=== PATIENT | female | born 1945 | race Caucasian/White ===

== ENCOUNTER 2023-09-04 11:15 | Inpatient (IN) | payer OTHER ==
[~2023-09-04] VITALS: Ht 172.7 cm; Wt 54.5 kg
[2023-09-04 11:29] VITALS: PULSE 107; RESP 21; O2SAT 94
[2023-09-04 11:50] LABS: Basophils # (auto) 0.1 10 ^3/uL (0-0.2); Basophils % (auto) 0.6 % (0.0-2.0); Eosinophils # (auto) 0 10 ^3/uL (0-0.8); Eosinophils % (auto) 0.2 % (0.0-7.0); Lymphocytes # (auto) 2.3 10 ^3/uL (0.4-5.4); Lymphocytes % (auto) 25.3 % (10.0-50.0); Mean Corpuscular Volume 91.2 fL (80.0-100.0); Monocytes # (auto) 1.5 10 ^3/uL (0-1.3); Monocytes % (auto) 16.5 % (0.0-12.0); Neutrophils # (auto) 5.1 10 ^3/uL (1.6-8.6); Neutrophils % (auto) 57.4 % (37.0-80.0); Nucleated Red Blood Cells % 0.1 %; Red Blood Cells 5.16 10^6/uL (4.0-5.20); Red Cell Distribution Width 14.5 % (11.8-14.3); White Blood Cell 8.9 10^3/uL (4.4-10.8)
[2023-09-04] MEDS: dilTIAZem 25 MG/5 ML VIAL IV ONE (12:05)
[2023-09-04 12:08] LABS: Alanine Aminotransferase 22 U/L (7-40); Albumin 4.2 g/dL (3.2-4.8); Alkaline Phosphatase 108 U/L (46-116); Anion Gap 5 (5-15); Aspartate Aminotransferase 24 U/L (13-40); BUN/Creatinine Ratio 18.2 (10.0-20.0); Blood Urea Nitrogen 12 mg/dL (9-23); Calcium 9.6 mg/dL (8.5-10.1); Carbon Dioxide 29 mmol/L (20-30); Chloride 103 mmol/L (98-107); Glucose 71 mg/dL (74-106); Potassium 4.8 mmol/L (3.5-5.1); Sodium 137 mmol/L (136-145)
[2023-09-04 12:09] LABS: Bilirubin, Total 0.3 mg/dL (0.2-1.0); Total Protein 7.2 g/dL (5.7-8.2)
[2023-09-04] MEDS: SODIUM CHLORIDE 0.9% 1,000 ML IV ONE (12:24)
[2023-09-04 12:30] LABS: Magnesium 2.1 mg/dL (1.6-2.6)
[2023-09-04 14:15] LABS: Urine Bacteria None Seen /hpf (None Seen)
[2023-09-04 14:35] LABS: Urine Blood Negative /uL (Negative); Urine Clarity Clear (Clear); Urine Color Colorless (Yellow); Urine Protein, UAD Negative (Negative); Urine Specific Gravity 1.004 (1.001-1.035); Urine Urobilinogen Normal (Negative); Urine WBC <1 /hpf (0 - 5); Urine pH 6.5 (5.0-9.0)
[2023-09-04 14:40] LABS: Amphetamine Screen, Urine Neg (NEGATIVE); Barbiturate Scree,Urine Neg (NEGATIVE); Benzodiazephine Screen, Urine Neg (NEGATIVE); Cannabinoid Screen, Urine Neg (NEGATIVE); Cocaine Screen, Urine Neg (NEGATIVE); Opiate Scree,Urine Neg (NEGATIVE); Phencyclidine Screen, Urine Neg (NEGATIVE)
[2023-09-04] MEDS ORDERED: ONDANSETRON HCL 4 MG/2 ML VIAL IV PRN (14:45)
[2023-09-04] MEDS ORDERED: MORPHINE SULFATE INJ 2 MG/ml SYRG IV PRN (14:45)
[2023-09-04] MEDS ORDERED: DOCUSATE SOD 100 MG CAP PO PRN (14:45)
[2023-09-04 15:00] VITALS: BP 156/86; RESP 19; O2SAT 93
[2023-09-04 16:00] VITALS: PULSE 86
[2023-09-04 16:12] LABS: Magnesium 2.2 mg/dL (1.6-2.6)
[2023-09-04 16:13] LABS: Phosphorus 2.9 mg/dL (2.4-5.1)
[2023-09-04] MEDS: SODIUM CHLORIDE 0.9% 1,000 ML IV SCH (16:36)
[2023-09-04] MEDS ORDERED: LISINOPRIL 5 MG TAB PO ONE (18:15)
[2023-09-04] MEDS ORDERED: AMIODARONE HCL 200 MG TAB PO ONE (18:15)
[2023-09-04] MEDS ORDERED: ASPirin 81 mg TAB PO ONE (18:15)
[2023-09-04] MEDS ORDERED: hydrALAZINE HCL 20 MG/ML VL IV PRN (18:15)
[2023-09-04] MEDS ORDERED: METOPROLOL TARTRATE 25 MG TAB PO ONE (18:15)
[2023-09-04 19:46] LABS: Triglycerides 76 mg/dL (< 150)
[2023-09-04 19:47] LABS: LDL Cholesterol 101 mg/dL (< 100)
[2023-09-04 19:48] LABS: Cholesterol 153 mg/dL (< 200); HDL Cholesterol 47 mg/dL (40-59)
[2023-09-04] MEDS ORDERED: AMIODARONE HCL 200 MG TAB PO SCH (22:00)
[2023-09-04] MEDS ORDERED: ATORVASTATIN 20 MG TAB PO SCH (22:00)
[2023-09-05] MEDS ORDERED: ENOXAPARIN SOD 40 MG/0.4 ML SYRINGE SC SCH (10:00)
[2023-09-05] MEDS ORDERED: LISINOPRIL 5 MG TAB PO SCH (10:00)
[2023-09-05] MEDS ORDERED: METOPROLOL SUCCINATE XL 50 MG TAB PO SCH (10:00)
[2023-09-05] MEDS ORDERED: ASPirin 81 mg TAB PO SCH (10:00)
== END 2023-09-04 17:57 | disposition left against medical advice (07) | DRG 310 ==
LOC: EDBD 11:15 → ER 11:15 → TELE 16:00
PROVIDERS: ADMIT Nurse Practitioner Family; ATTEND Nurse Practitioner Acute Care
DX: I47.19 Other supraventricular tachycardia (principal); I48.91 Unspecified atrial fibrillation; J44.9 Chronic obstructive pulmonary disease, unspecified; Z96.641 Presence of right artificial hip joint; F17.210 Nicotine dependence, cigarettes, uncomplicated; Z53.29 Procedure and treatment not carried out because of patient's decision for other reasons; G89.4 Chronic pain syndrome; I16.0 Hypertensive urgency; Z87.440 Personal history of urinary (tract) infections
CPT/HCPCS: 36415; 71045; 80053; 80061; 80307; 81001; 83036; 83605; 83735; 83880; 84100; 84443; 84484; 85025; 93005; 93306; G0378

== ENCOUNTER 2024-11-13 08:49 | Inpatient (IN) | payer OTHER ==
[~2024-11-13] VITALS: Ht 175.3 cm; Wt 75.0 kg
[2024-11-13] MEDS: SODIUM CHLORIDE 0.9% 2,000 ML IV ONE (09:15)
--- NOTE | 2024-11-13 09:36 | DVH ---
XY CHEST PORTABLE, HISTORY: FEVER COMPARISON: XY CHEST PORTABLE on DOS: 09/04/23 XY CHEST PORTABLE on DOS: 09/04/23 TECHNICAL DATA: 1 view of the chest was obtained. FINDINGS: Lines and tubes: None Cardiomediastinal silhouette: normal Pulmonary vasculature: prominent Lung expansion: normal Lung airspace: normal Lung interstitium: normal Pleura: normal Pneumothorax: no Bones: Unremarkable Other: no IMPRESSION: No acute intrathoracic abnormality.
--- NOTE | 2024-11-13 09:40 | DVH ---
CT HEAD WITHOUT CONTRAST INDICATION: [facility] EXAM DATE: 11/13/2024 09:04 AM COMPARISON: None RADIATION DOSE: CTDIvol: 52.14 mGy, DLP: 818.91 mGy*cm PROCEDURE: CT scans of the head were obtained from the vertex to the skull base. Sagittal and coronal reconstructions were provided. All CT scans at this medical facility are performed using dose modulation techniques as appropriate t o a performed exam including the following: Automated exposure control was utilized; adjustment of th e MA and/or KV according to patient size; and use of iterative reconstruction technique. FINDINGS: There is sulcal and ventricular prominence. The brainshows normal morphology and enrique-whi te matter differentiation, without intracranial hemorrhage, extra-axial fluid collection, mass effect or acute large vessel infarct. The ventricles are normal in size. The basal cisterns are patent. The skull and visible facial bones are intact. The paranasal sinuses, mastoid air cells and middle ear c avities are well-aerated. The soft tissues of the scalp are unremarkable. IMPRESSION: No acute intracranial abnormality.
[2024-11-13 09:49] LABS: Basophils # (auto) 0 10 ^3/uL (0-0.2); Eosinophils # (auto) 0 10 ^3/uL (0-0.8); Hematocrit 52.3 % (36.0-46.0); Hemoglobin 17.7 g/dL (12.2-16.2); Lymphocytes # (auto) 0.8 10 ^3/uL (0.4-5.4); Lymphocytes % (auto) 6.9 % (10.0-50.0); Mean Corpuscular Hemoglobin 30.4 pg (28.0-32.0); Mean Corpuscular Hgb Conc. 33.9 g/dL (32.0-36.0); Mean Corpuscular Volume 89.7 fL (80.0-100.0); Monocytes # (auto) 1.1 10 ^3/uL (0-1.3); Monocytes % (auto) 9.5 % (0.0-12.0); Neutrophils # (auto) 9.4 10 ^3/uL (1.6-8.6); Neutrophils % (auto) 83.6 % (37.0-80.0); Nucleated Red Blood Cells % 0.1 %; Platelet Count (auto) 192 10^3/uL (140-450); Red Blood Cells 5.84 10^6/uL (4.0-5.20); Red Cell Distribution Width 15.3 % (11.8-14.3); White Blood Cell 11.3 10^3/uL (4.4-10.8)
[2024-11-13] MEDS: VANCOMYCIN 1GM/200ML PM 200 ML IV ONE (10:02)
[2024-11-13 10:09] LABS: Alanine Aminotransferase 38 U/L (7-40); Albumin 4.4 g/dL (3.2-4.8); Alkaline Phosphatase 109 U/L (46-116); Anion Gap 8 (5-15); Aspartate Aminotransferase 77 U/L (<34); BUN/Creatinine Ratio 18.6 (10.0-20.0); Bilirubin, Total 0.8 mg/dL (0.2-1.0); Blood Urea Nitrogen 21 mg/dL (9-23); Calcium 10.1 mg/dL (8.7-10.4); Carbon Dioxide 25 mmol/L (20-31); Chloride 100 mmol/L (98-107); Glucose 160 mg/dL (74-106); Potassium 3.8 mmol/L (3.5-5.1); Sodium 133 mmol/L (136-145); Total Protein 7.4 g/dL (5.7-8.2)
[2024-11-13 10:11] LABS: INR 1.19 (0.9-1.15); Partial Thromboplastin Time 27.3 SEC (24.5-34.5); Prothrombin Time 12.4 sec (9.3-11.8)
[2024-11-13 10:13] VITALS: PULSE 109; RESP 32; O2SAT 95
[2024-11-13 10:18] LABS: Urine Bacteria None Seen /hpf (None Seen)
[2024-11-13 10:23] LABS: Lactic Acid w/Reflex 2.4 mmol/L (0.4-2.0)
[2024-11-13 10:31] LABS: Urine Blood 3+ /uL (Negative); Urine Clarity Clear (Clear); Urine Color Yellow (Yellow); Urine Hyaline Cast FEW /lpf (0 - 2); Urine Mucus FEW (None Seen); Urine Protein, UAD 1+ (Negative); Urine Specific Gravity 1.017 (1.001-1.035); Urine Squamous Epithelial Cell FEW /hpf (<5); Urine Urobilinogen Normal (Negative); Urine WBC 2 /HPF (0-5); Urine pH 5.5 (5.0-9.0)
[2024-11-13] MEDS: ACETAMINOPHEN IV 1000 MG/100ML (10MG/ML) IV STA (10:31)
--- NOTE | 2024-11-13 11:10 | ED.PDOC ---
History of Present Illness HPI Comments 79-year-old female presents via EMS from home after being found down next to her bed by neighbors. Patient's last known well was more than a day ago. Patient denies any memory of what happened. Patient is unable to provide any further history. 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 Family History Family History: Reviewed,noncontributory to illness Social History Smoker: Cigarettes Alcohol: Denies ETOH Use Drugs: Denies Drug Use Lives In: Home All Other Systems: Deferred Physical Exam General Appearance: Mild Distress HEENT: PERRL/EOMI Neck: Normal Inspection Respiratory: No Respiratory Distress Cardiovascular: Tachycardia Breast Exam: Deferred Gastrointestinal: Non Tender Genitalia: Deferred Pelvic: Deferred Rectal: Deferred Extremities: No pedal edema Neurologic: Disoriented Cerebellar Function: NOT DONE Reflexes: NOT DONE Skin: Other (Dry mucous membranes) Lymphatic: NOT DONE Was a procedure done? Was a procedure done?: No Differential Dx Considerations may include: ACS, CVA, viral syndrome, UTI, pneumonia X-Ray, Labs, Meds, VS Vital Signs Date Time Temp Pulse Resp B/P (MAP) Pulse Ox O2 Delivery O2 Flow Rate FiO2 11/13/24 10:13 109 32 95 Nasal Cannula* 6 44 11/13/24 09:56 101.2 112 26 153/81 (105) 87 101.2 11/13/24 08:55 99.2 120 20 124/75 (91) 95 99.2 11/13/24 08:55 111 Lab Test 11/13/24 10:11 11/13/24 09:30 11/13/24 09:00 Range/Units Urine Color Yellow Yellow Urine Clarity Clear Clear Urine pH 5.5 5.0-9.0 Urine Specific [place] 1.017 1.001-1.035 Urine Protein 1+ H Negative Urine Ketones Negative Negative Urine Blood 3+ H Negative /uL Urine Nitrite Negative Negative Urine Bilirubin Negative Negative Urine Urobilinogen Normal Negative mg/dL Urine Leukocyte Esterase Negative Negative /uL Urine RBC 6 0 - 4 /hpf Urine Microscopic WBC 2 0-5 /HPF Urine Squamous Epithelial Cells Few <5 /hpf Urine Bacteria None seen None Seen /hpf Urine Hyaline Casts Few 0 - 2 /lpf Urine Mucus Few None Seen Urine Glucose Trace Normal mg/dL White Blood Count 11.3 H 4.4-10.8 10^3/uL Red Blood Count 5.84 H 4.0-5.20 10^6/uL Hemoglobin 17.7 H 12.2-16.2 g/dL Hematocrit 52.3 H 36.0-46.0 % Mean Corpuscular Volume 89.7 80.0-100.0 fL Mean Corpuscular Hemoglobin 30.4 28.0-32.0 pg Mean Corpuscular Hemoglobin Concent 33.9 32.0-36.0 g/dL Red Cell Distribution Width 15.3 H 11.8-14.3 % Platelet Count 192 140-450 10^3/uL Mean Platelet Volume 7.3 6.9-10.8 fL Neutrophils (%) (Auto) 83.6 H 37.0-80.0 % Lymphocytes (%) (Auto) 6.9 L 10.0-50.0 % Monocytes (%) (Auto) 9.5 0.0-12.0 % Eosinophils (%) (Auto) 0.0 0.0-7.0 % Basophils (%) (Auto) 0.0 0.0-2.0 % Neutrophils # (Auto) 9.4 H 1.6-8.6 10 ^3/uL Lymphocytes # (Auto) 0.8 0.4-5.4 10 ^3/uL Monocytes # (Auto) 1.1 0-1.3 10 ^3/uL Eosinophils # (Auto) 0 0-0.8 10 ^3/uL Basophils # (Auto) 0 0-0.2 10 ^3/uL Nucleated Red Blood Cells 0.1 % Prothrombin Time 12.4 H 9.3-11.8 sec Prothrombin Time INR 1.19 H 0.9-1.15 Activated Partial Thromboplast Time 27.3 24.5-34.5 SEC Sodium Level 133 L 136-145 mmol/L Potassium Level 3.8 3.5-5.1 mmol/L Chloride Level 100 98-107 mmol/L Carbon Dioxide Level 25 20-31 mmol/L Anion Gap 8 5-15 Blood Urea Nitrogen 21 9-23 mg/dL Creatinine 1.13 H 0.550-1.02 mg/dL Glomerular Filtration Rate Calc 49 >90 mL/min BUN/Creatinine Ratio 18.6 10.0-20.0 Serum Glucose 160 H 74-106 mg/dL Lactic Acid Level 2.4 *H 0.4-2.0 mmol/L Calcium Level 10.1 8.7-10.4 mg/dL Total Bilirubin 0.8 0.2-1.0 mg/dL Aspartate Amino Transferase (AST) 77 H <34 U/L Alanine Aminotransferase (ALT) 38 7-40 U/L Alkaline Phosphatase 109 46-116 U/L Total Protein 7.4 5.7-8.2 g/dL Albumin 4.4 3.2-4.8 g/dL POC Glucose 192 H 70-106 mg/dl Current Medications Medications (Trade) Dose Ordered Sig/Lasha Route Start Time Stop Time Status Last Admin Vancomycin HCl 200 ml @ 200 mls/hr ONCE ONCE IV 11/13/24 09:15 11/13/24 10:14 DC 11/13/24 10:02 Sodium Chloride 2,000 ml @ 1,000 mls/hr Q2H ONCE IV 11/13/24 09:15 11/13/24 11:14 11/13/24 09:15 Time of 1ST Reevaluation: 11:09 Reevaluation 1ST: Improved Patient Education/Counseling: Diagnosis, Treatment Family Education/Counseling: No Family Present SEPSIS Sepsis Screen Date sepsis recognized/suspect: Nov 13, 2024 Time Sepsis recognized/suspect: 1039 Recent Procedure: No On Antibiotic Therapy: No Respiratory Rate >20: Yes Heart Rate >90: Yes Temp<36 C (96.8 F) or >38.3 C: Yes SBP <90 or MAP <65 mmHG: No New Acute Mental Status Change: Yes Is the patient on CPAP, BIPAP,: No IV fluid challenge completed?: Yes Physician Orders Electrocardigram (11/13/24 09:03) Chest Portable (11/13/24 09:02) Accucheck (11/13/24 09:02) Blood Culture (11/13/24 09:02) Lactic Acid W/ Reflex Order (11/13/24 12:00) Cefepime 1gm/ 50ml (Maxipime 1gm/50ml) (11/13/24 14:00) Sodium Chloride 0.9% (11/13/24 09:15) Head Without Contrast (11/13/24 09:02) Insert/Manage Urinary Catheter QSHIFT (11/13/24 10:17) Pharmacy Clarification: (11/13/24 10:40) Vital Signs Date Time Temp Pulse Resp B/P (MAP) Pulse Ox O2 Delivery O2 Flow Rate FiO2 11/13/24 10:13 109 32 95 Nasal Cannula* 6 44 11/13/24 09:56 101.2 112 26 153/81 (105) 87 101.2 11/13/24 08:55 99.2 120 20 124/75 (91) 95 99.2 11/13/24 08:55 111 Laboratory Tests Test 11/13/24 09:30 Lactic Acid Level 2.4 mmol/L (0.4-2.0) *H White Blood Count 11.3 10^3/uL (4.4-10.8) H Medications Medications Dose Ordered Sig/Lasha Route Start Time Stop Time Status Last Admin Dose Admin Sodium Chloride 2,000 ml @ 1,000 mls/hr Q2H ONCE IV 11/13/24 09:15 11/13/24 11:14 11/13/24 09:15 Vancomycin HCl 200 ml @ 200 mls/hr ONCE ONCE IV 11/13/24 09:15 11/13/24 10:14 DC 11/13/24 10:02 Departure 1 Departure Time of Disposition: 11:09 (Patient with altered mental status and fever concerning for sepsis. We will empirically cover patient with antibiotics and fluids admit patient for further workup and expert consultation) Impression: Primary Impression: Sepsis Qualified Codes: A41.9 - Sepsis, unspecified organism; R65.20 - Severe sepsis without septic shock; G93.41 - Metabolic encephalopathy Additional Impressions: Metabolic encephalopathy Generalized weakness Disposition: ADMITTED INPATIENT Admit to: Med Surg Condition: Guarded Critical Care Note Critical Care Time?: Yes Critical care comment: Sepsis Authorized and Performed by: Kayode Dodd MD Total critical care time: Approximately 39 minutes Due to a high probability of clinically significant, life threatening deterioration, the patient required my highest level of preparedness to intervene emergently and I personally spent this critical care time directly and personally managing the patient. This critical care time included obtaining a history; examining the patient; pulse oximetry; ordering and review of studies; arranging urgent treatment with development of a management plan; evaluation of patient's response to treatment; frequent reassessment; and, discussions with other providers. This critical care time was performed to assess and manage the high probability of imminent, life-threatening deterioration that could result in multi-organ failure. It was exclusive of separately billable procedures and treating other patients and teaching time. Please see my other sections and the rest of the note for further information on patient assessment and treatment. Stability Stability form required: No Heart Score Heart Score: Heart Score Response (Comments) Value History N/A 0 EKG N/A 0 Age N/A 0 Risk Factors N/A 0 Troponin N/A 0 Total 0 KAYODE DODD MD Nov 13, 2024 11:10
[2024-11-13] MEDS: CEFEPIME 1GM/ 50ML 50 ML IV ONE (11:40)
[2024-11-13] MEDS ORDERED: CEFEPIME 1GM/ 50ML 50 ML IV SCH (14:00)
[2024-11-13] MEDS ORDERED: ACETAMINOPHEN 325 MG TAB PO PRN (14:00)
[2024-11-13] MEDS ORDERED: MORPHINE SULFATE INJ 2 MG/ml SYRG IV PRN (14:00)
[2024-11-13] MEDS ORDERED: ONDANSETRON HCL 4 MG/2 ML VIAL IV PRN (14:00)
[2024-11-13] MEDS ORDERED: NITROGLYCERIN 0.4 MG SL TAB SL PRN (14:00)
[2024-11-13] MEDS ORDERED: VANCOMYCIN PER PHARMACY 0 MG IV SCH (14:00)
[2024-11-13] MEDS ORDERED: DEXTROSE (50%) 50ML SYRG IV PRN (14:00)
[2024-11-13] MEDS ORDERED: LISI10TA34 PO (14:03)
[2024-11-13] MEDS ORDERED: hydrALAZINE HCL 20 MG/ML VL IV PRN (14:15)
--- NOTE | 2024-11-13 14:16 | DVHHP2 ---
History of Present Illness Reason for Visit: ALOC History of Present Illness Joanna Cortez is a 79-year-old female with past medical history of hypertension, COPD, AFib, UTIs, and right hip replacement who presents to the ED with altered level of consciousness. Patient's neighbor/partner and daughter aJneen is at the bedside. They reported that he usually calls her every day and did not answer so he went over to her house next door found her sitting on her buttocks on the floor. Patient reports that she recalls falling down on her buttocks after having generalized body spasms for 2 hours this morning. Patient reports that there were no triggers. Patient also reports that she does not use oxygen at home. Patient currently denies of pain throughout her body, denies chest pain, shortness of breath, fever, chills, lightheadedness, weakness, dizziness, recent ingestion of spoiled food, recent sick contacts, recent travels, urinary symptoms, abdominal pain, nausea, vomiting, or diarrhea. Patient reports that she lives at home alone. She also states that she walks slowly without any DMEs. Patient reports that she smokes half a pack of cigarettes per day, denies illicit drug use, and denies alcohol use. Cardiovascular: AFIB, HTN Pulmonary: COPD Renal/: UTI Past Surgical History: Other (Right hip replacement) Family History: Other (Both parents ) Smoke: <1 pack per day ALCOHOL: none Drugs: None Lives: Alone Domestic Violence: Neg Review of Systems Skin: Other (Right knee erythema noted) Neurological: Confusion Allergies: Coded Allergies: Sulfa Antibiotics (Verified Allergy, Unknown, 09/04/23) Uncoded Allergies: NARCOTICS (Allergy, Unknown, 09/04/23) Medications Current Medications Medications Dose Ordered Sig/Lasha Route Start Time Stop Time Status Last Admin Dose Admin Cefepime HCl 50 ml @ 12.5 mls/hr Q8HR IV 11/13/24 14:00 UNV Diagnostic Test (Pha) 1 strip ACHS 11/13/24 17:00 UNV Insulin Human Regular ACHS SC 11/13/24 17:00 UNV Dextrose 50 ml UD PRN IV 11/13/24 14:00 UNV Vancomycin HCl 0 ml @ 0 mls/hr UD IV 11/13/24 14:00 UNV Cefepime HCl 50 ml @ 12.5 mls/hr Q12HR IV 11/13/24 22:00 UNV Ondansetron HCl 4 mg Q4HP PRN IV 11/13/24 14:00 UNV Enoxaparin Sodium 40 mg DAILY SC 11/14/24 10:00 UNV Acetaminophen 650 mg Q6HP PRN PO 11/13/24 14:00 UNV Nitroglycerin 0.4 mg Q5MINP PRN SL 11/13/24 14:00 UNV Morphine Sulfate 2 mg Q30M PRN IV 11/13/24 14:00 UNV Exam Vital Signs Vital Signs Date Time Temp Pulse Resp B/P (MAP) Pulse Ox O2 Delivery O2 Flow Rate FiO2 11/13/24 12:00 103 30 129/73 (91) 94 11/13/24 10:13 Nasal Cannula* 6 44 11/13/24 09:56 101.2 101.2 General Appearance: Alert, Oriented X3, Cooperative, No acute distress HEENT: Atraumatic, PERRLA, EOMI, Mucous membr. moist/pink Respiratory: Normal air movement Cardiovascular: Normal S1, Normal S2 Abdominal: Normal bowel sounds, Soft Extremities: No edema Neuro: Normal speech, Strength at 5/5 X4 ext, Normal tone, Sensation intact Psych/Mental Status: Mental status NL, Mood NL Labs/Xrays Labs Test 11/13/24 12:46 11/13/24 10:11 11/13/24 09:30 11/13/24 09:00 Range/Units Lactic Acid Level 1.5 0.4-2.0 mmol/L Urine Color Yellow Yellow Urine Clarity Clear Clear Urine pH 5.5 5.0-9.0 Urine Specific [place] 1.017 1.001-1.035 Urine Protein 1+ H Negative Urine Ketones Negative Negative Urine Blood 3+ H Negative /uL Urine Nitrite Negative Negative Urine Bilirubin Negative Negative Urine Urobilinogen Normal Negative mg/dL Urine Leukocyte Esterase Negative Negative /uL Urine RBC 6 0 - 4 /hpf Urine Microscopic WBC 2 0-5 /HPF Urine Squamous Epithelial Cells Few <5 /hpf Urine Bacteria None seen None Seen /hpf Urine Hyaline Casts Few 0 - 2 /lpf Urine Mucus Few None Seen Urine Glucose Trace Normal mg/dL White Blood Count 11.3 H 4.4-10.8 10^3/uL Red Blood Count 5.84 H 4.0-5.20 10^6/uL Hemoglobin 17.7 H 12.2-16.2 g/dL Hematocrit 52.3 H 36.0-46.0 % Mean Corpuscular Volume 89.7 80.0-100.0 fL Mean Corpuscular Hemoglobin 30.4 28.0-32.0 pg Mean Corpuscular Hemoglobin Concent 33.9 32.0-36.0 g/dL Red Cell Distribution Width 15.3 H 11.8-14.3 % Platelet Count 192 140-450 10^3/uL Mean Platelet Volume 7.3 6.9-10.8 fL Neutrophils (%) (Auto) 83.6 H 37.0-80.0 % Lymphocytes (%) (Auto) 6.9 L 10.0-50.0 % Monocytes (%) (Auto) 9.5 0.0-12.0 % Eosinophils (%) (Auto) 0.0 0.0-7.0 % Basophils (%) (Auto) 0.0 0.0-2.0 % Neutrophils # (Auto) 9.4 H 1.6-8.6 10 ^3/uL Lymphocytes # (Auto) 0.8 0.4-5.4 10 ^3/uL Monocytes # (Auto) 1.1 0-1.3 10 ^3/uL Eosinophils # (Auto) 0 0-0.8 10 ^3/uL Basophils # (Auto) 0 0-0.2 10 ^3/uL Nucleated Red Blood Cells 0.1 % Prothrombin Time 12.4 H 9.3-11.8 sec Prothrombin Time INR 1.19 H 0.9-1.15 Activated Partial Thromboplast Time 27.3 24.5-34.5 SEC Sodium Level 133 L 136-145 mmol/L Potassium Level 3.8 3.5-5.1 mmol/L Chloride Level 100 98-107 mmol/L Carbon Dioxide Level 25 20-31 mmol/L Anion Gap 8 5-15 Blood Urea Nitrogen 21 9-23 mg/dL Creatinine 1.13 H 0.550-1.02 mg/dL Glomerular Filtration Rate Calc 49 >90 mL/min BUN/Creatinine Ratio 18.6 10.0-20.0 Serum Glucose 160 H 74-106 mg/dL Calcium Level 10.1 8.7-10.4 mg/dL Total Bilirubin 0.8 0.2-1.0 mg/dL Aspartate Amino Transferase (AST) 77 H <34 U/L Alanine Aminotransferase (ALT) 38 7-40 U/L Alkaline Phosphatase 109 46-116 U/L Total Protein 7.4 5.7-8.2 g/dL Albumin 4.4 3.2-4.8 g/dL POC Glucose 192 H 70-106 mg/dl CT HEAD WITHOUT CONTRAST INDICATION: ams EXAM DATE: 11/13/2024 09:04 AM COMPARISON: None RADIATION DOSE: CTDIvol: 52.14 mGy, DLP: 818.91 mGy*cm PROCEDURE: CT scans of the head were obtained from the vertex to the skull base. Sagittal and coronal reconstructions were provided. All CT scans at this medical facility are performed using dose modulation techniques as appropriate to a performed exam including the following: Automated exposure control was utilized; adjustment of the MA and/or KV according to patient size; and use of iterative reconstruction technique. FINDINGS: There is sulcal and ventricular prominence. The brainshows normal morphology and enrique-white matter differentiation, without intracranial hemorrhage, extra-axial fluid collection, mass effect or acute large vessel infarct. The ventricles are normal in size. The basal cisterns are patent. The skull and visible facial bones are intact. The paranasal sinuses, mastoid air cells and middle ear cavities are well-aerated. The soft tissues of the scalp are unremarkable. IMPRESSION: No acute intracranial abnormality. XY CHEST PORTABLE, HISTORY: FEVER COMPARISON: XY CHEST PORTABLE on DOS: 09/04/23 XY CHEST PORTABLE on DOS: 09/04/23 TECHNICAL DATA: 1 view of the chest was obtained. FINDINGS: Lines and tubes: None Cardiomediastinal silhouette: normal Pulmonary vasculature: prominent Lung expansion: normal Lung airspace: normal Lung interstitium: normal Pleura: normal Pneumothorax: no Bones: Unremarkable Other: no IMPRESSION: No acute intrathoracic abnormality. Assessment/Plan Assessment/Plan Assessment Acute encephalopathy Pyrexia Acute hypoxic respiratory failure Leukocytosis unclear etiology Lactic acidosis rule out sepsis Hyponatremia ZAC Hyperglycemia Tobacco use Acute on chronic COPD exacerbation History of hypertension History of AFib History of UTIs History of right hip replacement Plan Admit to [facility] Antihypertensives IV antibiotics-vancomycin + cefepime Antipyretics NS 2 L given ED [place] catheterization CT head noted Lactic level Blood culture PT/PTT EKG Hemoglobin A1c ISS and Accu-Cheks CK Urine culture Right knee x-ray Lumbar spine x-ray Antiemetics Pain management Diet DVT prophylaxis-Lovenox PUD prophylaxis-not indicated no history of GERD or GI bleed Discussed plan of care with patient, patient's partner, and nurse Counseled patient on cessation of tobacco use Plan discussed with: Patient, Daughter, Other My Orders Orders - BRENDA MOSELEY Procedure Category Date Status Time Hemoglobin A1c LAB 11/13/24 Logged 14:00 Glucose Blood PHA 11/13/24 Logged (Accu-Chek Comfort 17:00 Insulin R (Human) PHA 11/13/24 Logged (Insulin R) 17:00 Dextrose 50% Syringe PHA 11/13/24 Logged 14:00 Vancomycin Per PHA 11/13/24 Logged Pharmacy 14:00 Cefepime 1gm/ 50ml PHA 11/13/24 Logged (Maxipime 1gm/50ml) 22:00 Admit ADMIT 11/13/24 Transmitted 14:00 Allergies BRITT 11/13/24 In Process 14:00 Code Status CODE 11/13/24 Transmitted 14:00 Ondansetron Hcl PHA 11/13/24 Logged (Zofran) 14:00 Enoxaparin Sodium PHA 11/14/24 Logged (Lovenox) 10:00 Complete Blood Count LAB 11/14/24 Verified 04:00 Comprehensive LAB 11/14/24 Verified Metabolic Panel 04:00 Cardiac DIET 11/13/24 Transmitted Diet-2gna,Lofat,Lochol Dinner Acetaminophen Tablet PHA 11/13/24 Logged (Tylenol Tablet) 14:00 Nitroglycerin PHA 11/13/24 Logged Sublingual (Ntrostat 14:00 Morphine Sulfate PHA 11/13/24 Logged Injection 14:00 Stat Ekg For Chest [facility] 11/13/24 In Process Pain 14:00 Notify Md Of Changes [facility] 11/13/24 In Process From Base 14:00 Sponge Maker For BRITT 11/13/24 In Process 24 Hours 14:00 Emergency Dysrhythmia BRITT 11/13/24 In Process Protocol 14:00 Rhythm Strips Once BRITT 11/13/24 In Process Every Shift 14:00 Oxygen By Nasal RT 11/13/24 Transmitted Cannula 14:00 Date of Service: Nov 13, 2024 Billing Provider: BRENDA MOSELEY [employer] Common Visit Codes: [id number] INP/OBS CARE (HIGH) BRENDA MOSELEY [facility] Nov 13, 2024 14:16
--- NOTE | 2024-11-13 15:01 | DVH ---
Indication: r/o fx Technique: 3 views of the right knee Comparison: None FINDINGS/IMPRESSION: There is cortical irregularity of the right fibular neck which could be secondary to fracture, aggres sive process/lesion. Recommend MRI of the right tibia/ fibula with and without contrast to evaluate. There is possible underlying lytic lesion measuring 2.4 x 1.2 cm with cortical disruption. [id number] tricompartmental degenerative joint disease. Atherosclerotic disease.
--- NOTE | 2024-11-13 15:02 | DVH ---
Indication: fell on back Technique: 3 views lumbar spine Comparison: None FINDINGS/IMPRESSION: The lumbar vertebral body heights are maintained. Moderate to severe multilevel disc space narrowing and vacuum disc phenomena most pronounced at L1-2, L2-3m. There is 6 mm anterolisthesis of L4 upon L5. There is 4 mm retrolisthesis of L2 upon L3. Lumbar levocurvature. Moderate to severe lumbar facet hypertrophic changes at L4-5 and L5-S1. Hip arthroplasty changes. Moderate to severe neural foraminal stenosis at L5-S1. Moderate neural foraminal stenosis L3-4 and L 4-5.
[2024-11-13 16:48] VITALS: BP 123/76; PULSE 89; RESP 14; TEMP 97.6; O2SAT 96
[2024-11-13 16:50] VITALS: BP 123/76; PULSE 89; RESP 20; TEMP 97.6; O2SAT 95
[2024-11-13] MEDS: ACCU-CHEK COMFORT CURVE STRIP VI SCH (17:00)
[2024-11-13] MEDS ORDERED: ASPI325T6 PO (17:17)
[2024-11-13] MEDS: InsuLIN REG 1unit/0.01ml Soln (100units/ml) SC SCH (17:48)
[2024-11-13 18:50] VITALS: PULSE 89; RESP 20; O2SAT 95
[2024-11-13 21:00] VITALS: BP 135/67; PULSE 87; RESP 18; TEMP 98.1; O2SAT 96
[2024-11-13] MEDS: CEFEPIME 1GM/ 50ML 50 ML IV SCH (21:21)
[2024-11-14] VITALS (8 sets, daily range): BP systolic 94–133; BP diastolic 68–87; PULSE 67–91; RESP 14–18; TEMP 96.1–98.2; O2SAT 95–98
[2024-11-14 05:17] LABS: Basophils # (auto) 0 10 ^3/uL (0-0.2); Basophils % (auto) 0.2 % (0.0-2.0); Eosinophils # (auto) 0 10 ^3/uL (0-0.8); Hematocrit 49.3 % (36.0-46.0); Hemoglobin 16.9 g/dL (12.2-16.2); Lymphocytes # (auto) 1.1 10 ^3/uL (0.4-5.4); Lymphocytes % (auto) 14.6 % (10.0-50.0); Mean Corpuscular Hemoglobin 31.2 pg (28.0-32.0); Mean Corpuscular Hgb Conc. 34.3 g/dL (32.0-36.0); Mean Corpuscular Volume 90.9 fL (80.0-100.0); Monocytes # (auto) 0.9 10 ^3/uL (0-1.3); Monocytes % (auto) 12.4 % (0.0-12.0); Neutrophils # (auto) 5.4 10 ^3/uL (1.6-8.6); Neutrophils % (auto) 72.8 % (37.0-80.0); Nucleated Red Blood Cells % 0.2 %; Platelet Count (auto) 146 10^3/uL (140-450); Red Blood Cells 5.42 10^6/uL (4.0-5.20); Red Cell Distribution Width 15.3 % (11.8-14.3); White Blood Cell 7.4 10^3/uL (4.4-10.8)
[2024-11-14 05:37] LABS: Albumin 3.7 g/dL (3.2-4.8); Alkaline Phosphatase 85 U/L (46-116); Anion Gap 5 (5-15); BUN/Creatinine Ratio 22.4 (10.0-20.0); Blood Urea Nitrogen 19 mg/dL (9-23); Calcium 8.9 mg/dL (8.7-10.4); Carbon Dioxide 29 mmol/L (20-31); Glucose 100 mg/dL (74-106); Potassium 4.5 mmol/L (3.5-5.1); Sodium 141 mmol/L (136-145); Total Protein 6.4 g/dL (5.7-8.2)
[2024-11-14 05:38] LABS: Bilirubin, Total 0.4 mg/dL (0.2-1.0)
[2024-11-14 06:04] LABS: Alanine Aminotransferase 58 U/L (7-40); Aspartate Aminotransferase 110 U/L (<34); Chloride 107 mmol/L (98-107)
[2024-11-14] MEDS: LISINOPRIL 5 MG TAB PO SCH (09:35)
[2024-11-14] MEDS: ENOXAPARIN SOD 40 MG/0.4 ML SYRINGE SC SCH (09:35)
--- NOTE | 2024-11-14 10:18 | DVHPN2 ---
Reviewed: Care Plan, H&P, Labs, Medications Changes from previous H/P or p: No Changes General: Per HPI Skin: Other (Right knee erythema noted) Objective Vitals Vital Signs Date Time Temp Pulse Resp B/P (MAP) Pulse Ox O2 Delivery O2 Flow Rate FiO2 11/14/24 09:35 110/87 11/14/24 09:00 96.1 84 17 97 96.1 11/13/24 20:00 Nasal Cannula* 4 36 Intake/Output Intake and Output 11/14/24 07:00 Intake Total 400 ml Output Total 1300 ml Balance -900 ml Intake Oral 150 ml IV Total 250 ml Output Urine Total 1300 ml Medications Current Medications Medications Dose Ordered Sig/Lasha Route Start Time Stop Time Status Last Admin Dose Admin Diagnostic Test (Pha) 1 strip ACHS 11/13/24 17:00 11/14/24 07:22 1 STRIP Insulin Human Regular ACHS SC 11/13/24 17:00 Dextrose 50 ml UD PRN IV 11/13/24 14:00 Vancomycin HCl 0 ml @ 0 mls/hr UD IV 11/13/24 14:00 UNV Cefepime HCl 50 ml @ 12.5 mls/hr Q12HR IV 11/13/24 22:00 11/14/24 09:34 12.5 MLS/HR Ondansetron HCl 4 mg Q4HP PRN IV 11/13/24 14:00 Enoxaparin Sodium 40 mg DAILY SC 11/14/24 10:00 Acetaminophen 650 mg Q6HP PRN PO 11/13/24 14:00 Nitroglycerin 0.4 mg Q5MINP PRN SL 11/13/24 14:00 Morphine Sulfate 2 mg Q30M PRN IV 11/13/24 14:00 Lisinopril 10 mg DAILY PO 11/14/24 10:00 11/14/24 09:35 10 MG Hydralazine HCl 10 mg Q6HP PRN IV 11/13/24 14:15 Laboratory Results Laboratory Tests 11/14/24 04:27 Chemistry Test 11/14/24 04:27 Albumin 3.7 g/dL (3.2-4.8) Calcium Level 8.9 mg/dL (8.7-10.4) Total Protein 6.4 g/dL (5.7-8.2) LFT Test 11/14/24 04:27 Alanine Aminotransferase (ALT) 58 U/L (7-40) H Alkaline Phosphatase 85 U/L (46-116) Aspartate Amino Transferase (AST) 110 U/L (<34) H Total Bilirubin 0.4 mg/dL (0.2-1.0) Urinalysis Test 11/13/24 10:11 Urine Color Yellow (Yellow) Urine Clarity Clear (Clear) Urine pH 5.5 (5.0-9.0) Urine Specific [place] 1.017 (1.001-1.035) Urine Protein 1+ (Negative) H Urine Ketones Negative (Negative) Urine Blood 3+ /uL (Negative) H Urine Nitrite Negative (Negative) Urine Bilirubin Negative (Negative) Urine Urobilinogen Normal mg/dL (Negative) Urine Leukocyte Esterase Negative /uL (Negative) Urine RBC 6 /hpf (0 - 4) Urine Microscopic WBC 2 /HPF (0-5) Urine Squamous Epithelial Cells Few /hpf (<5) Urine Bacteria None seen /hpf (None Seen) Urine Hyaline Casts Few /lpf (0 - 2) Urine Mucus Few (None Seen) Urine Glucose Trace mg/dL (Normal) Microbiology Microbiology Date/Time Source Procedure Growth Status 11/13/24 10:11 Voided Urine Urine Culture - Preliminary Resulted 11/13/24 09:30 Blood Blood Culture - Preliminary NO GROWTH AFTER 24 HOURS OF INCUBATION. Resulted Assessment/Plan Assessment/Plan Joanna Cortez is a 79-year-old female with past medical history of hypertension, COPD, AFib, UTIs, and right hip replacement who presents to the ED with altered level of consciousness. Patient's neighbor/partner and daughter Janeen is at the bedside. They reported that he usually calls her every day and did not answer so he went over to her house next door found her sitting on her buttocks on the floor. Patient reports that she recalls falling down on her buttocks after having generalized body spasms for 2 hours this morning. Patient reports that there were no triggers. Patient also reports that she does not use oxygen at home. Patient currently denies of pain throughout her body, denies chest pain, shortness of breath, fever, chills, lightheadedness, weakness, dizziness, recent ingestion of spoiled food, recent sick contacts, recent travels, urinary symptoms, abdominal pain, nausea, vomiting, or diarrhea. Patient reports that she lives at home alone. She also states that she walks slowly without any DMEs. Patient reports that she smokes half a pack of cigarettes per day, denies illicit drug use, and denies alcohol use. Acute encephalopathy Pyrexia Acute hypoxic respiratory failure Leukocytosis unclear etiology Lactic acidosis rule out sepsis Hyponatremia ZAC/vasomotor nephropathy Hyperglycemia Tobacco use Acute on chronic COPD exacerbation History of hypertension History of AFib History of UTIs History of right hip replacement suspected pna 11/14/2024 nephrology consulted continue with empirical iv abx Plan discussed with: Patient Date of Service: Nov 14, 2024 Billing Provider: SIOBHAN HARMAN DO Common Visit Codes: [id number] INP/OBS CARE(HIGH) ISOBHAN HARMAN DO Nov 14, 2024 10:18
--- NOTE | 2024-11-14 14:29 | DVHINCON2 ---
Date of service: Nov 14, 2024 Referring Physician Tristan Torers MD Reason for Consultation Acute kidney injury History of Present Illness Joanna Cortez is a 79-year-old F with Past Medical History pertinent for Hypertension, COPD, A-Fib, UTIs and right hip replacement who presented to the hospital with complaint of altered level of consciousness. Patient currently denies any symptoms. Patient states that she walks slowly without any DMEs. Reports that she smokes half a pack of cigarettes per day. While in ED, UA was positive for blood, negative for infection. Creatinine 1.13 with normal BUN. Na 133. WBC 11.3. Hgb 17.7. HCT 52.3. CT Head reported no acute intracranial abnor mality. Chest x-ray reported no acute intrathoracic abnormality. Allergies: Coded Allergies: Sulfa Antibiotics (Verified Allergy, Unknown, 09/04/23) Uncoded Allergies: NARCOTICS (Allergy, Unknown, 09/04/23) Home Meds Reported Medications Aspirin (Aspirin) 325 Mg Tab, 162 MG PO BID for 30 Days, MG 11/13/24 Lisinopril (Lisinopril) 10 Mg Tab, 1 TAB PO DAILY 11/13/24 Current Medications Current Medications Medications (Trade) Dose Ordered Sig/Lasha Route PRN Reason Start Time Stop Time Status Last Admin Diagnostic Test (Pha) (Accu-Chek Comfort Curve T) 1 strip ACHS 11/13/24 17:00 11/14/24 12:03 Insulin Human Regular (InsuLIN R) ACHS SC 11/13/24 17:00 Cefepime HCl 50 ml @ 12.5 mls/hr Q12HR IV 11/13/24 22:00 11/14/24 09:34 Enoxaparin Sodium (Lovenox) 40 mg DAILY SC 11/14/24 10:00 Lisinopril (Zestril Tablet) 10 mg DAILY PO 11/14/24 10:00 11/14/24 09:35 Vancomycin HCl 250 ml @ 200 mls/hr DAILY@0600 IV 11/15/24 06:00 Family History: Patient reports no known family medical history. Review of Systems Skin: Other (Right knee erythema noted) Neurological: Confusion Other systems reviewed and negative unless otherwise noted in HPI. H&P Exam Vital Signs/I&O Vital Sign Date Time Temp Pulse Resp B/P (MAP) Pulse Ox O2 Delivery O2 Flow Rate FiO2 11/14/24 13:00 97.0 67 18 94/68 (77) 98 97.0 11/14/24 08:15 Nasal Cannula* 4 36 Intake and Output 11/13/24 11/14/24 19:00 07:00 Intake Total 250 ml 150 ml Output Total 950 ml 350 ml Balance -700 ml -200 ml Intake Oral 0 ml 150 ml IV Total 250 ml Output Urine Total 950 ml 350 ml Physical Exam Vitals and nursing notes reviewed. General Appearance: Cooperative, No acute distress HEENT: Atraumatic, PERRLA, EOMI, Mucous membr. moist/pink Respiratory: Normal air movement Cardiovascular: Normal S1, Normal S2 Abdominal: Normal bowel sounds, Soft Extremities: No edema Neuro: Alert, Oriented X3, Normal speech, Strength at 5/5 X4 ext, Normal tone, Sensation intact Psych/Mental Status: Mental status NL, Mood NL Labs/Diagnostic Data Labs/Diagnostic Data Laboratory Tests Test 11/14/24 11:30 11/14/24 05:53 11/14/24 04:27 11/13/24 21:23 Range/Units POC Glucose 117 H 108 H 116 H 70-106 mg/dl White Blood Count 7.4 # 4.4-10.8 10^3/uL Red Blood Count 5.42 H 4.0-5.20 10^6/uL Hemoglobin 16.9 H 12.2-16.2 g/dL Hematocrit 49.3 H 36.0-46.0 % Mean Corpuscular Volume 90.9 80.0-100.0 fL Mean Corpuscular Hemoglobin 31.2 28.0-32.0 pg Mean Corpuscular Hemoglobin Concent 34.3 32.0-36.0 g/dL Red Cell Distribution Width 15.3 H 11.8-14.3 % Platelet Count 146 140-450 10^3/uL Mean Platelet Volume 7.7 6.9-10.8 fL Neutrophils (%) (Auto) 72.8 37.0-80.0 % Lymphocytes (%) (Auto) 14.6 10.0-50.0 % Monocytes (%) (Auto) 12.4 H 0.0-12.0 % Eosinophils (%) (Auto) 0.0 0.0-7.0 % Basophils (%) (Auto) 0.2 0.0-2.0 % Neutrophils # (Auto) 5.4 1.6-8.6 10 ^3/uL Lymphocytes # (Auto) 1.1 0.4-5.4 10 ^3/uL Monocytes # (Auto) 0.9 0-1.3 10 ^3/uL Eosinophils # (Auto) 0 0-0.8 10 ^3/uL Basophils # (Auto) 0 0-0.2 10 ^3/uL Nucleated Red Blood Cells 0.2 % Sodium Level 141 # 136-145 mmol/L Potassium Level 4.5 3.5-5.1 mmol/L Chloride Level 107 98-107 mmol/L Carbon Dioxide Level 29 20-31 mmol/L Anion Gap 5 5-15 Blood Urea Nitrogen 19 9-23 mg/dL Creatinine 0.85 0.550-1.02 mg/dL Glomerular Filtration Rate Calc 70 >90 mL/min BUN/Creatinine Ratio 22.4 H 10.0-20.0 Serum Glucose 100 74-106 mg/dL Calcium Level 8.9 8.7-10.4 mg/dL Total Bilirubin 0.4 0.2-1.0 mg/dL Aspartate Amino Transferase (AST) 110 H <34 U/L Alanine Aminotransferase (ALT) 58 H 7-40 U/L Alkaline Phosphatase 85 46-116 U/L Total Protein 6.4 5.7-8.2 g/dL Albumin 3.7 3.2-4.8 g/dL Test 11/13/24 17:46 11/13/24 12:46 11/13/24 10:11 11/13/24 09:30 Range/Units POC Glucose 127 H 70-106 mg/dl Lactic Acid Level 1.5 2.4 *H 0.4-2.0 mmol/L Urine Color Yellow Yellow Urine Clarity Clear Clear Urine pH 5.5 5.0-9.0 Urine Specific [place] 1.017 1.001-1.035 Urine Protein 1+ H Negative Urine Ketones Negative Negative Urine Blood 3+ H Negative /uL Urine Nitrite Negative Negative Urine Bilirubin Negative Negative Urine Urobilinogen Normal Negative mg/dL Urine Leukocyte Esterase Negative Negative /uL Urine RBC 6 0 - 4 /hpf Urine Microscopic WBC 2 0-5 /HPF Urine Squamous Epithelial Cells Few <5 /hpf Urine Bacteria None seen None Seen /hpf Urine Hyaline Casts Few 0 - 2 /lpf Urine Mucus Few None Seen Urine Glucose Trace Normal mg/dL White Blood Count 11.3 H 4.4-10.8 10^3/uL Red Blood Count 5.84 H 4.0-5.20 10^6/uL Hemoglobin 17.7 H 12.2-16.2 g/dL Hematocrit 52.3 H 36.0-46.0 % Mean Corpuscular Volume 89.7 80.0-100.0 fL Mean Corpuscular Hemoglobin 30.4 28.0-32.0 pg Mean Corpuscular Hemoglobin Concent 33.9 32.0-36.0 g/dL Red Cell Distribution Width 15.3 H 11.8-14.3 % Platelet Count 192 140-450 10^3/uL Mean Platelet Volume 7.3 6.9-10.8 fL Neutrophils (%) (Auto) 83.6 H 37.0-80.0 % Lymphocytes (%) (Auto) 6.9 L 10.0-50.0 % Monocytes (%) (Auto) 9.5 0.0-12.0 % Eosinophils (%) (Auto) 0.0 0.0-7.0 % Basophils (%) (Auto) 0.0 0.0-2.0 % Neutrophils # (Auto) 9.4 H 1.6-8.6 10 ^3/uL Lymphocytes # (Auto) 0.8 0.4-5.4 10 ^3/uL Monocytes # (Auto) 1.1 0-1.3 10 ^3/uL Eosinophils # (Auto) 0 0-0.8 10 ^3/uL Basophils # (Auto) 0 0-0.2 10 ^3/uL Nucleated Red Blood Cells 0.1 % Prothrombin Time 12.4 H 9.3-11.8 sec Prothrombin Time INR 1.19 H 0.9-1.15 Activated Partial Thromboplast Time 27.3 24.5-34.5 SEC Sodium Level 133 L 136-145 mmol/L Potassium Level 3.8 3.5-5.1 mmol/L Chloride Level 100 98-107 mmol/L Carbon Dioxide Level 25 20-31 mmol/L Anion Gap 8 5-15 Blood Urea Nitrogen 21 9-23 mg/dL Creatinine 1.13 H 0.550-1.02 mg/dL Glomerular Filtration Rate Calc 49 >90 mL/min BUN/Creatinine Ratio 18.6 10.0-20.0 Serum Glucose 160 H 74-106 mg/dL Hemoglobin A1c 6.2 H <5.7 % A1C Calcium Level 10.1 8.7-10.4 mg/dL Total Bilirubin 0.8 0.2-1.0 mg/dL Aspartate Amino Transferase (AST) 77 H <34 U/L Alanine Aminotransferase (ALT) 38 7-40 U/L Alkaline Phosphatase 109 46-116 U/L Creatine Kinase 2190 H 34-145 U/L Total Protein 7.4 5.7-8.2 g/dL Albumin 4.4 3.2-4.8 g/dL Test 11/13/24 09:00 Range/Units POC Glucose 192 H 70-106 mg/dl Assessment Acute encephalopathy Acute kidney injury Pyrexia Acute hypoxic respiratory failure Leukocytosis unclear etiology Lactic acidosis Hyponatremia Hyperglycemia Plan/Recommendation Agreement with your ongoing assessment and plan of care. Supplemental oxygen to keep sats >92%. Daily lab monitoring; electrolyte replacement prn. IV antibiotics with Vancomycin and Cefepime. F/u cultures. Optimization of BP with IV Hydralazine prn. Pain management prn. Cardiac diet. DVT prophylaxis. Additional plan as per the hospital course. Plan discussed with: Patient, Other (RN) TONJA SULLIVAN DO Nov 14, 2024 14:29
[2024-11-14] MEDS ORDERED: diphenhdrAMINE HCL 50 MG/1 ML VL IV ONE (14:30)
[2024-11-14] MEDS: VANCOMYCIN 1.25GM/250ML 250 ML IV ONE (14:40)
[2024-11-15 01:00] VITALS: BP 98/69; PULSE 69; RESP 15; TEMP 97.5; O2SAT 97
[2024-11-15 05:00] VITALS: BP 104/79; PULSE 61; RESP 16; TEMP 97.9; O2SAT 99
[2024-11-15] MEDS: VANCOMYCIN 1.25GM/250ML 250 ML IV SCH (05:43)
[2024-11-15 09:00] VITALS: BP 102/74; PULSE 66; RESP 18; TEMP 96.9; O2SAT 98
[2024-11-15 13:00] VITALS: BP 116/78; PULSE 57; RESP 20; TEMP 96.9; O2SAT 97
[2024-11-15] MEDS ORDERED: CEPH250C PO (15:06)
--- NOTE | 2024-11-15 15:09 | DVHDS2 ---
Discharge Summary Date of Admission Nov 13, 2024 at 14:00 Date of Discharge: Nov 15, 2024 Labs/Diagnostic Data: Laboratory Results Test 11/15/24 06:18 11/15/24 05:10 11/14/24 04:27 11/13/24 12:46 Creatinine 0.81 mg/dL (0.550-1.02) Glomerular Filtration Rate Calc 74 mL/min (>90) POC Glucose 108 mg/dl (70-106) White Blood Count 7.4 10^3/uL (4.4-10.8) Red Blood Count 5.42 10^6/uL (4.0-5.20) Hemoglobin 16.9 g/dL (12.2-16.2) Hematocrit 49.3 % (36.0-46.0) Mean Corpuscular Volume 90.9 fL (80.0-100.0) Mean Corpuscular Hemoglobin 31.2 pg (28.0-32.0) Mean Corpuscular Hemoglobin Concent 34.3 g/dL (32.0-36.0) Red Cell Distribution Width 15.3 % (11.8-14.3) Platelet Count 146 10^3/uL (140-450) Mean Platelet Volume 7.7 fL (6.9-10.8) Neutrophils (%) (Auto) 72.8 % (37.0-80.0) Lymphocytes (%) (Auto) 14.6 % (10.0-50.0) Monocytes (%) (Auto) 12.4 % (0.0-12.0) Eosinophils (%) (Auto) 0.0 % (0.0-7.0) Basophils (%) (Auto) 0.2 % (0.0-2.0) Neutrophils # (Auto) 5.4 10 ^3/uL (1.6-8.6) Lymphocytes # (Auto) 1.1 10 ^3/uL (0.4-5.4) Monocytes # (Auto) 0.9 10 ^3/uL (0-1.3) Eosinophils # (Auto) 0 10 ^3/uL (0-0.8) Basophils # (Auto) 0 10 ^3/uL (0-0.2) Nucleated Red Blood Cells 0.2 % Sodium Level 141 mmol/L (136-145) Potassium Level 4.5 mmol/L (3.5-5.1) Chloride Level 107 mmol/L (98-107) Carbon Dioxide Level 29 mmol/L (20-31) Anion Gap 5 (5-15) Blood Urea Nitrogen 19 mg/dL (9-23) BUN/Creatinine Ratio 22.4 (10.0-20.0) Serum Glucose 100 mg/dL (74-106) Calcium Level 8.9 mg/dL (8.7-10.4) Total Bilirubin 0.4 mg/dL (0.2-1.0) Aspartate Amino Transferase (AST) 110 U/L (<34) Alanine Aminotransferase (ALT) 58 U/L (7-40) Alkaline Phosphatase 85 U/L (46-116) Total Protein 6.4 g/dL (5.7-8.2) Albumin 3.7 g/dL (3.2-4.8) Lactic Acid Level 1.5 mmol/L (0.4-2.0) Test 11/13/24 10:11 11/13/24 09:30 Urine Color Yellow (Yellow) Urine Clarity Clear (Clear) Urine pH 5.5 (5.0-9.0) Urine Specific [place] 1.017 (1.001-1.035) Urine Protein 1+ (Negative) Urine Ketones Negative (Negative) Urine Blood 3+ /uL (Negative) Urine Nitrite Negative (Negative) Urine Bilirubin Negative (Negative) Urine Urobilinogen Normal mg/dL (Negative) Urine Leukocyte Esterase Negative /uL (Negative) Urine RBC 6 /hpf (0 - 4) Urine Microscopic WBC 2 /HPF (0-5) Urine Squamous Epithelial Cells Few /hpf (<5) Urine Bacteria None seen /hpf (None Seen) Urine Hyaline Casts Few /lpf (0 - 2) Urine Mucus Few (None Seen) Urine Glucose Trace mg/dL (Normal) Prothrombin Time 12.4 sec (9.3-11.8) Prothrombin Time INR 1.19 (0.9-1.15) Activated Partial Thromboplast Time 27.3 SEC (24.5-34.5) Hemoglobin A1c 6.2 % A1C (<5.7) Creatine Kinase 2190 U/L (34-145) Other Laboratory Tests 11/15/24 06:18 11/14/24 04:27 Brief Hx & Hospital Course: Joanna Cortez is a 79-year-old female with past medical history of hypertension, COPD, AFib, UTIs, and right hip replacement who presents to the ED with altered level of consciousness. Patient's neighbor/partner and daughter Janeen is at the bedside. They reported that he usually calls her every day and did not answer so he went over to her house next door found her sitting on her buttocks on the floor. Patient reports that she recalls falling down on her buttocks after having generalized body spasms for 2 hours this morning. Patient reports that there were no triggers. Patient also reports that she does not use oxygen at home. Patient currently denies of pain throughout her body, denies chest pain, shortness of breath, fever, chills, lightheadedness, weakness, dizziness, recent ingestion of spoiled food, recent sick contacts, recent travels, urinary symptoms, abdominal pain, nausea, vomiting, or diarrhea. Patient reports that she lives at home alone. She also states that she walks slowly without any DMEs. Patient reports that she smokes half a pack of cigarettes per day, denies illicit drug use, and denies alcohol use. Acute encephalopathy Pyrexia Acute hypoxic respiratory failure Leukocytosis unclear etiology Lactic acidosis rule out sepsis Hyponatremia ZAC/vasomotor nephropathy Hyperglycemia Tobacco use Acute on chronic COPD exacerbation History of hypertension History of AFib History of UTIs History of right hip replacement suspected pna 11/14/2024 nephrology consulted continue with empirical iv abx 11/15/2024 discharged to home with self care meds sent to local pharmacy Condition at Discharge: Fair Final Diagnosis/Problems List see above Discharge Disposition: Home Discharge Instruct/Medications Diet: Cardiac 2g Na,low cholest Activity: No Restrictions, As Tolerated Discharge Statement: "Patient was advised to return to the ER or call 911 if any headaches, dizziness, shortness of breath, chest pain, abdominal pain, bleeding, fevers, or worsening of medical condition. Patient was counseled about treatment plan, medications, possible side effects, patientverbalized understanding. All questions were answered to the best of my ability. This discharge took greater then 30 minutes in planning, reviewing documentation, counseling the patient, and discussing with other team members." ASSESSMENT ASSESSMENT Assessment Date of Service: Nov 15, 2024 Billing Provider: SIOBHAN HARMAN DO Common Visit Codes: [id number] DISCH DAY >30min SIOBHAN HARMAN DO Nov 15, 2024 15:09
--- NOTE | 2024-11-15 16:53 | DVHPN2 ---
Progress Note - Dictate Date Seen: Nov 15, 2024 Has the PT tested + for MRSA If YES, has PT been informed?: No Medical Necessity Reason Pt with a Central, PICC or Fol: No Subjective Patient was seen and evaluated in follow up. No acute events overnight. Patient denies any complaints. Reports feeling well. Renal function improved. vital signs Vital Sign Date Time Temp Pulse Resp B/P (MAP) Pulse Ox O2 Delivery O2 Flow Rate FiO2 11/15/24 13:00 96.9 57 20 116/78 (91) 97 96.9 11/15/24 08:10 Nasal Cannula* 4 36 Total Intake and Output 11/14/24 11/14/24 11/15/24 14:59 22:59 06:59 Intake Total 480 ml 600 ml 300 ml Output Total 250 ml 500 ml Balance 480 ml 350 ml -200 ml medications Current Medications Medications Dose Ordered Sig/Lasha Route Start Time Stop Time Status Last Admin Dose Admin Diagnostic Test (Pha) 1 strip ACHS 11/13/24 17:00 11/15/24 05:43 Insulin Human Regular ACHS SC 11/13/24 17:00 Dextrose 50 ml UD PRN IV 11/13/24 14:00 Vancomycin HCl 0 ml @ 0 mls/hr UD IV 11/13/24 14:00 Cefepime HCl 50 ml @ 12.5 mls/hr Q12HR IV 11/13/24 22:00 11/15/24 09:25 Ondansetron HCl 4 mg Q4HP PRN IV 11/13/24 14:00 Enoxaparin Sodium 40 mg DAILY SC 11/14/24 10:00 Acetaminophen 650 mg Q6HP PRN PO 11/13/24 14:00 Nitroglycerin 0.4 mg Q5MINP PRN SL 11/13/24 14:00 Morphine Sulfate 2 mg Q30M PRN IV 11/13/24 14:00 Lisinopril 10 mg DAILY PO 11/14/24 10:00 11/15/24 09:26 Hydralazine HCl 10 mg Q6HP PRN IV 11/13/24 14:15 Vancomycin HCl 250 ml @ 200 mls/hr DAILY@0600 IV 11/15/24 06:00 11/15/24 05:43 objective Vitals and nursing notes reviewed. General Appearance: Cooperative, No acute distress HEENT: Atraumatic, PERRLA, EOMI, Mucous membr. moist/pink Respiratory: Normal air movement Cardiovascular: Normal S1, Normal S2 Abdominal: Normal bowel sounds, Soft Extremities: No edema Neuro: Alert, Oriented X3, Normal speech, Strength at 5/5 X4 ext, Normal tone, Sensation intact Psych/Mental Status: Mental status NL, Mood NL laboratory and microbiology Laboratory Tests 11/15/24 06:18 11/14/24 04:27 Test 11/14/24 04:27 Range/Units Serum Glucose 100 74-106 mg/dL Problem List Acute encephalopathy Acute kidney injury Pyrexia Acute hypoxic respiratory failure Leukocytosis unclear etiology Lactic acidosis Hyponatremia Hyperglycemia Assessment/Plan DC planning in progress. Cleared for discharge from Nephrology standpoint. Plan discussed with: Patient, Other (RN) TONJA SULLIVAN DO Nov 15, 2024 16:53
[2024-11-15 17:05] VITALS: BP 102/74; PULSE 80; RESP 18; TEMP 36.1; O2SAT 99
--- NOTE | 2024-11-16 14:38 | ECG ---
[facility] Test Date: 2024-11-13 Test Time: 08:55:41 Pat Name: MILADY FLORES Department: ED Room: 0290 A Gender: F [employer]: CURT : 1945 Requested By: MONISHA LAYNE Order Number: [id number] Reading MD: Luis Bledsoe Measurements Intervals [place] Rate: 111 P: 91 MD: 124 QRS: 103 QRSD: 92 T: -57 QT: 294 QTc: 400 Interpretive Statements Sinus tachycardia Atrial premature complexes Biatrial enlargement Right axis deviation Nonspecific repol abnormality, diffuse leads Minimal ST elevation, lateral leads Artifact in lead(s) I,II,aVR,aVL,V1,V2 Electronically Signed On 11-20-2024 8:56:57 PDT by Luis Bledsoe Please click the below link to view image of tracing.
== END 2024-11-15 17:30 | disposition home or self-care (01) | DRG 871 ==
LOC: EDUNIT# 08:49 → EDBD 08:49 → ER 08:49 → OVERFLOW 14:00 → WEST WING 16:40
DX: A41.9 Sepsis, unspecified organism (principal); G93.41 Metabolic encephalopathy; J96.01 Acute respiratory failure with hypoxia; N17.0 Acute kidney failure with tubular necrosis; J18.9 Pneumonia, unspecified organism; E87.20 Acidosis, unspecified; E87.1 Hypo-osmolality and hyponatremia; J44.1 Chronic obstructive pulmonary disease with (acute) exacerbation; I10 Essential (primary) hypertension; R73.9 Hyperglycemia, unspecified; I48.91 Unspecified atrial fibrillation; F17.210 Nicotine dependence, cigarettes, uncomplicated; Z88.2 Allergy status to sulfonamides; Z96.641 Presence of right artificial hip joint; Z87.440 Personal history of urinary (tract) infections
CPT/HCPCS: 36415; 70450; 71045; 72100; 73560; 80053; 81001; 82550; 82565; 82962; 83036; 83605; 85025; 85610; 85730; 87040; 87086; 93005; 96365; 99291; G0378; J0131; J1815